=== PATIENT | female | born 1990 | race American Indian/Alaskan Native ===

== ENCOUNTER 2019-01-10 11:42 | Emergency (ER) | payer SELFPAY ==
[2019-01-10 13:36] VITALS: BP 124/76
--- NOTE | 2019-01-10 13:41 | Event Note ---
ED Screening Note Date of service: 01/10/19 Time: 13:37 ED Screening Note: 28 y/o female comes in for abd pain. Has N/V. lmp 12/08/18. This initial assessment/diagnostic orders/clinical plan/treatment(s) is/are subject to change based on patients health status, clinical progression and re- assessment by fellow clinical providers in the ED. Further treatment and workup at subsequent clinical providers discretion. Patient/guardian urged not to elope from the ED as their condition may be serious if not clinically assessed and managed. Initial orders include:
[2019-01-10 14:03] LABS: Basophils % (Auto) 0.4 % (0.0-1.8); Eosinophils % (Auto) 0.5 % (0.0-4.3); Hematocrit 36.2 % (30.3-42.9); Hemoglobin 12.8 gm/dl (10.1-14.3); Lymphocytes % (Auto) 35.4 % (13.4-35.0); Mean Corpuscular HGB Conc 35 % (30-34); Mean Corpuscular Volume 88 fl (79-97); Monocytes # (Auto) 0.4 K/mm3 (0.0-0.8); Monocytes % (Auto) 7.5 % (0.0-7.3); Platelet Count 220 K/mm3 (140-440); Red Blood Count 4.11 M/mm3 (3.65-5.03); Red Cell Distribution Width 13.1 % (13.2-15.2)
--- NOTE | 2019-01-10 14:28 | Emergency Department Report ---
HPI - General Chief Complaint: Abdominal Pain Time Seen by Provider: 01/10/19 13:36 ED Past Medical Hx - Past Medical History Previous Medical History?: No - Surgical History Past Surgical History?: No - Social History Smoking Status: Never Smoker Substance Use Type: None ED Review of Systems ROS: Stated complaint: ABD PAIN/CRAMPS Other details as noted in HPI Comment: All other systems reviewed and negative Physical Exam - Physical Exam Vital Signs: Vital Signs 01/10/19 13:32 Temperature 97.9 F Pulse Rate 89 Respiratory 18 Rate Blood Pressure 124/76 O2 Sat by Pulse 100 Oximetry ED Course Vital Signs 01/10/19 13:32 Temperature 97.9 F Pulse Rate 89 Respiratory 18 Rate Blood Pressure 124/76 O2 Sat by Pulse 100 Oximetry ED Medical Decision Making - Lab Data Result diagrams: 01/10/19 13:45 - Medical Decision Making Vital Signs 01/10/19 13:32 Temperature 97.9 F Pulse Rate 89 Respiratory 18 Rate Blood Pressure 124/76 O2 Sat by Pulse 100 Oximetry Lab Results 01/10/19 01/10/19 Range/Units 13:45 14:00 WBC 5.7 (4.5-11.0) K/mm3 RBC 4.11 (3.65-5.03) M/mm3 Hgb 12.8 (10.1-14.3) gm/dl Hct 36.2 (30.3-42.9) % MCV 88 (79-97) fl MCH 31 (28-32) pg MCHC 35 H (30-34) % RDW 13.1 L (13.2-15.2) % Plt Count 220 (140-440) K/mm3 Lymph % (Auto) 35.4 H (13.4-35.0) % [place] % (Auto) 7.5 H (0.0-7.3) % Eos % (Auto) 0.5 (0.0-4.3) % Baso % (Auto) 0.4 (0.0-1.8) % Lymph # 2.0 (1.2-5.4) K/mm3 [place] # 0.4 (0.0-0.8) K/mm3 Eos # 0.0 (0.0-0.4) K/mm3 Baso # 0.0 (0.0-0.1) K/mm3 Seg Neutrophils % 56.2 (40.0-70.0) % Seg Neutrophils # 3.2 (1.8-7.7) K/mm3 Urine Bilirubin Neg (Negative) Urine RBC (Auto) 1.0 (0.0-6.0) /HPF U Epithel Cells (Auto) 3.0 (0-13.0) /HPF LEFT TO GET HER CHILD AT 1430 PER NURSING STAFF NOT IN ROOM 1440 Critical care attestation.: If time is entered above; I have spent that time in minutes in the direct care of this critically ill patient, excluding procedure time. ED Disposition Clinical Impression: Abdominal pain Disposition: ELOPED Is pt being admited?: No Condition: Stable Time of Disposition: 14:42
[2019-01-10 14:30] LABS: Bilirubin,Urine NEG (Negative); Blood,Urine SM (Negative); Color,Urine Straw (Yellow); Mucus,Urine FEW /HPF; Protein,Urine <15 mg/dL mg/dL (Negative); Urobilinogen,Urine < 2.0 mg/dL (<2.0); WBC,Urine < 1.0 /HPF (0.0-6.0)
[2019-01-10 14:43] LABS: Alanine Aminotransferase 11 units/L (7-56); Albumin 4.6 g/dL (3.9-5); BUN/Creatinine Ratio 10; Blood Urea Nitrogen 6 mg/dL (7-17); Calcium 9.5 mg/dL (8.4-10.2); Hemolysis Index 30
== END 2019-01-10 14:22 | disposition left against medical advice (07) ==
LOC: ED 11:42
DX: R10.9 Unspecified abdominal pain (principal)
CPT/HCPCS: 36415; 80053; 81001; 84702; 85025

== ENCOUNTER 2019-01-10 15:26 | Emergency (ER) | payer OTHER ==
[2019-01-10 15:41] VITALS: BP 135/87
--- NOTE | 2019-01-10 17:03 | Emergency Department Report ---
ED Recheck HPI - General Chief Complaint: Abdominal Pain Stated Complaint: UNK Time Seen by Provider: 01/10/19 16:09 Source: patient Mode of arrival: Ambulatory Limitations: No Limitations - History of Present Illness Initial Comments: HERE WITH NAUSEA AND ABD CRAMPS. NO VAG BLEED OR DC. LMP 7/3. PT CONCERNED . NO VAG BLEEDING. - Related Data Allergies Allergy/AdvReac Type Severity Reaction Status Date / Time iodine AdvReac Swelling Verified 01/10/19 11:45 ED Review of Systems ROS: Stated complaint: UNK Other details as noted in HPI Comment: All other systems reviewed and negative ED Past Medical Hx - Past Medical History Previous Medical History?: No - Surgical History Past Surgical History?: No - Family History Family history: no significant - Social History Smoking Status: Never Smoker Substance Use Type: None ED Physical Exam - General Limitations: No Limitations - Head Head exam: Present: atraumatic - Eye Eye exam: Present: normal appearance, PERRL - ENT ENT exam: Present: normal exam - Neck Neck exam: Present: normal inspection - Respiratory Respiratory exam: Present: normal lung sounds bilaterally - Cardiovascular Cardiovascular Exam: Present: regular rate - GI/Abdominal GI/Abdominal exam: Present: soft - Rectal Rectal exam: Present: deferred - Extremities Exam Extremities exam: Present: normal inspection - Back Exam Back exam: Present: normal inspection - Neurological Exam Neurological exam: Present: alert, oriented X3, CN II-XII intact - Psychiatric Psychiatric exam: Present: normal affect, normal mood - Skin Skin exam: Present: warm, dry, intact ED Course Vital Signs 01/10/19 15:37 Temperature 98.5 F Pulse Rate 115 H Respiratory 18 Rate Blood Pressure 135/87 O2 Sat by Pulse 100 Oximetry - Reevaluation(s) Reevaluation #1: 01/10/19 1600 HR 90 ON EXAM ED Recheck MDM - Core Measures Measure Exclusions: not indicated - Medical Decision Making LABS FROM VISIT EARLIER TODAY REVIEWED POS PREG TEST NO VAG BLEED PT NEW TO ARE[facility] AND WANTS REFERRAL TO [facility] WITH DC PLAN OF CARE AND FOLLOW UP PLANS. Vital Signs 01/10/19 15:37 Temperature 98.5 F Pulse Rate 115 H Respiratory 18 Rate Blood Pressure 135/87 O2 Sat by Pulse 100 Oximetry Critical care attestation.: If time is entered above; I have spent that time in minutes in the direct care of this critically ill patient, excluding procedure time. ED Disposition Clinical Impression: Disposition: DC-01 TO HOME OR SELFCARE Is pt being admited?: No Does the pt Need Aspirin: No Condition: Stable Instructions: Morning Sickness (ED), (ED) Additional Instructions: AVOID DRUGS AND ALCOHOL; AVOID CIG. VITAMIN CAN OBTAIN OVER THE COUNTER FOLLOW UP WITH OBABRAHAM PERALES Referrals: PER ZAMARRIPA MD [Staff Physician] - 3-5 Days Time of Disposition: 17:24
== END 2019-01-10 18:05 | disposition home or self-care (01) ==
LOC: ED 15:26
DX: O26.891 Other specified pregnancy related conditions, first trimester (principal); R10.9 Unspecified abdominal pain; R11.0 Nausea; Z91.041 Radiographic dye allergy status; Z3A.01 Less than 8 weeks gestation of pregnancy
CPT/HCPCS: 99282